=== PATIENT | male | born 1960 | race American Indian/Alaskan Native ===

== ENCOUNTER 2018-10-12 11:26 | Outpatient (CLI) | payer BC ==
--- NOTE | 2018-10-12 13:27 | Cat Scan Report ---
CT scan of the abdomen and pelvis without contrast INDICATION: HEMATURIA,GROSS (R31.0). TECHNIQUE: All CT scans at this location are performed using the following dose modulation technique: Automated exposure control. Helical slices were obtained through the abdomen and pelvis. COMPARISON: CT scan dated 08/18/2011 FINDINGS: Abdomen: The lung bases are clear. Liver, spleen, pancreas, adrenal glands, and small bowel are unrem arkable. The aorta is normal in diameter. The right kidney is severely atrophic and unchanged from the prior exam. There is compensatory hypert rophy of the left kidney. There are small low-density lesions in the left kidney which measure water density and likely represent cysts. No renal calculi are seen. There are no ureteral calculi. There i s no hydronephrosis. The appendix is unremarkable. Pelvis: There is no obstruction, inflammation, or free air. There are atherosclerotic calcifications in the iliac arteries. There is no adenopathy. On review of bone windows, no acute osseous abnormalities are seen. IMPRESSION: 1. There are no renal or ureteral calculi. There is no hydronephrosis. There are small low-density lesions in the left kidney which likely represent cysts. Ultrasound of th e left kidney can be obtained to confirm that these are cysts. There is severe atrophy of the right kidney with compensatory hypertrophy of the left kidney. This is unchanged from the prior study. Signer Name: Prashant Kingsley MD Signed: 10/12/2018 1:22 PM Workstation Name: [id number]
== END 2018-10-12 11:27 | disposition home or self-care (01) ==
LOC: CT 11:26
PROVIDERS: ATTEND Urology
DX: N28.81 Hypertrophy of kidney (principal)
CPT/HCPCS: 74176

== ENCOUNTER 2019-07-27 20:22 | Emergency (ER) | payer BC ==
[2019-07-27] MEDS ORDERED: LIDOCAINE JELLY (2%) 5 ML TOPICAL ONE (20:40)
[2019-07-27] MEDS ORDERED: LIDOCAINE 2% UROJECT 10 ML JELLY UR ONE (20:41)
--- NOTE | 2019-07-27 20:53 | Emergency Department Report ---
ED Male HPI - General Chief complaint: Urogenital-Male Stated complaint: UNABLE TO URINATE Time Seen by Provider: 07/27/19 20:35 Source: patient Mode of arrival: Ambulatory Limitations: No Limitations - History of Present Illness Initial comments: Patient is a 59-year-old male that presents emergency room with difficulty urinating. Patient states he is only urinating a very small amount. Patient is having lower abdominal discomfort. Patient states he has not voided except for small amounts for the past 24 hours. Patient states he is going approximately every 30 minutes a very small amount. Patient states he has an enlarged prostate. Patient states he Xavier has a urologist. Patient states he does not have a history of prostate cancer. Patient states the pain is a 3 out of 10. Pain states is better with urinating and worse with palpation. Patient denies fever and chills. Patient denies recent travel. Patient denies recent international travel. Patient denies exposure to the novel coronavirus. Patient denies sick contacts. Patient denies fever and chills. Patient denies cough. Patient denies diarrhea. Patient denies coming in contact with anybody with symptoms of the novel coronavirus. Complaint: other -: Sudden Radiation: none Severity: moderate Severity scale (0 -10): 3 Consistency: constant Improves with: urination Worsens with: movement - Related Data Sexually active: No Previous Rx's Medication Instructions Recorded Last Taken Type Ciprofloxacin HCl [Ciprofloxacin 500 mg PO Q12HR 10 Days #20 tab 07/27/19 Unknown Rx TAB] Allergies Allergy/AdvReac Type Severity Reaction Status Date / Time No Known Allergies Allergy Unverified 10/12/18 11:27 ED Review of Systems ROS: Stated complaint: UNABLE TO URINATE Other details as noted in HPI Constitutional: denies: chills, fever Eyes: denies: eye pain, eye discharge, vision change ENT: denies: ear pain, throat pain Respiratory: denies: cough, shortness of breath, wheezing Cardiovascular: denies: chest pain, palpitations Endocrine: no symptoms reported Gastrointestinal: denies: abdominal pain, nausea, diarrhea Genitourinary: as per HPI, other. denies: urgency, dysuria Musculoskeletal: denies: back pain, joint swelling, arthralgia Skin: denies: rash, lesions Neurological: denies: headache, weakness, paresthesias Psychiatric: denies: anxiety, depression Hematological/Lymphatic: denies: easy bleeding, easy bruising ED Past Medical Hx - Past Medical History Previous Medical History?: Yes Hx Hypertension: Yes Hx Diabetes: Yes Additional medical history: high cholesterol, BPH - Surgical History Past Surgical History?: No - Family History Family history: no significant - Social History Smoking Status: Current Every Day Smoker Substance Use Type: Alcohol - Medications Home Medications: Home Medications Medication Instructions Recorded Confirmed Last Taken Type Ciprofloxacin HCl [Ciprofloxacin 500 mg PO Q12HR 10 Days #20 tab 07/27/19 Unknown Rx TAB] ED Physical Exam - General Limitations: No Limitations General appearance: alert, in no apparent distress - Head Head exam: Present: atraumatic, normocephalic - Eye Eye exam: Present: normal appearance - ENT ENT exam: Present: mucous membranes moist - Neck Neck exam: Present: normal inspection - Respiratory Respiratory exam: Present: normal lung sounds bilaterally. Absent: respiratory distress - Cardiovascular Cardiovascular Exam: Present: regular rate, normal rhythm. Absent: systolic murmur, diastolic murmur, rubs, gallop - GI/Abdominal GI/Abdominal exam: Present: soft, normal bowel sounds - Rectal Rectal exam: Present: deferred - Extremities Exam Extremities exam: Present: normal inspection - Back Exam Back exam: Present: normal inspection - Neurological Exam Neurological exam: Present: alert, oriented X3 - Psychiatric Psychiatric exam: Present: normal affect, normal mood - Skin Skin exam: Present: warm, dry, intact, normal color. Absent: rash ED Course Vital Signs 07/27/19 20:54 Respiratory 18 Rate - Reevaluation(s) Reevaluation #1: Vigil placed by nurse. And large clot removed. Patient states his symptoms are better. 07/27/19 21:00 Reevaluation #2: Leg bag placed. Patient states he is ready to go home. I discussed Vigil care with patient. Patient will need to see urologist in the morning. Patient instructed to leave the catheter in until the urologist removes it. I discussed all results and clinical findings with patient. I discussed plan of care with patient. Patient agrees with plan of care. Patient is stable for discharge. Patient will be discharged home. Patient given discharge instructions. Patient voiced understanding of discharge instructions. 07/27/19 22:01 ED Medical Decision Making - Medical Decision Making Patient is a 59-year-old male that presents emergency room with complaints of urinary retention and difficulty urinating. Patient had a Vigil catheter placed and his symptoms were relieved. Patient discharged with Vigil catheter and an will need to follow-up with urologist for further management of his urinary retention. Patient's urine done and found to have WBCs on the urine. Patient treated for a UTI. Patient discharged with Vigil. Patient is stable for discharge - Differential Diagnosis Urinary retention, UTI, prostatitis, BPH Critical care attestation.: If time is entered above; I have spent that time in minutes in the direct care of this critically ill patient, excluding procedure time. ED Disposition Clinical Impression: Gross hematuria, Urinary retention UTI (urinary tract infection) Qualifiers: Urinary tract infection type: acute cystitis Hematuria presence: with hematuria Qualified Code(s): N30.01 - Acute cystitis with hematuria Disposition: TO HOME OR SELFCARE Is pt being admited?: No Does the pt Need Aspirin: No Condition: Stable Instructions: Urinary Retention in Men (ED), Urinary Leg Bag (GEN), Vigil Catheter Placement and Care (ED) Additional Instructions: Patient to follow-up with primary care in 2 to 3 days. Patient to follow-up with urologist in 2 to 3 days. Patient to rest. Patient to increase water. Patient to leave catheter in until removed by urologist. Patient to take Tylenol or ibuprofen as needed for pain. Patient to take meds as directed. Patient to return to the ER if condition worsens, changes or new symptoms arise. Prescriptions: Ciprofloxacin HCl [Ciprofloxacin TAB] 500 mg PO Q12HR 10 Days #20 tab Referrals: RICK MAHARAJ JR, MD [Primary Care Provider] - 2-3 Days ARGENTINA DOE MD [Staff Physician] - 24 Hours Time of Disposition: 22:01
[2019-07-27 21:15] LABS: Bacteria,Urine 4+ /HPF (Negative)
[2019-07-27 21:35] LABS: RBC,Urine > 182.0 /HPF (0.0-6.0); WBC,Urine > 182.0 /HPF (0.0-6.0)
[2019-07-27 23:41] LABS: Bacteria,Urine 1+ /HPF (Negative); Bilirubin,Urine NEG (Negative); Blood,Urine LG (Negative); Color,Urine Red (Yellow); Urobilinogen,Urine < 2.0 mg/dL (<2.0)
[2019-07-27 23:45] LABS: RBC,Urine > 182.0 /HPF (0.0-6.0)
== END 2019-07-27 22:58 | disposition home or self-care (01) ==
LOC: ED 20:22
DX: R33.8 Other retention of urine (principal); N39.0 Urinary tract infection, site not specified; I10 Essential (primary) hypertension; E11.9 Type 2 diabetes mellitus without complications; E78.00 Pure hypercholesterolemia, unspecified; F17.200 Nicotine dependence, unspecified, uncomplicated
CPT/HCPCS: 51702; 81001; 87086

== ENCOUNTER 2019-11-30 04:12 | Emergency (ER) | payer BC ==
[2019-11-30 04:26] VITALS: BP 161/90
[2019-11-30 08:42] LABS: Bilirubin,Urine NEG (Negative); Blood,Urine LG (Negative); Color,Urine Red (Yellow); Mucus,Urine FEW /HPF; Urobilinogen,Urine < 2.0 mg/dL (<2.0)
[2019-11-30 08:48] LABS: RBC,Urine > 182.0 /HPF (0.0-6.0); WBC,Urine > 182.0 /HPF (0.0-6.0)
--- NOTE | 2019-11-30 09:07 | Emergency Department Report ---
ED Male HPI - General Chief complaint: Urogenital-Male Stated complaint: UNABLE TO URINATE Time Seen by Provider: 11/30/19 08:24 Source: patient Mode of arrival: Ambulatory Limitations: No Limitations - History of Present Illness Initial comments: 59-year-old -[place] male presents to the emergency room stating he is having trouble urinating. Patient states that he had been peeing clots. Patient reported he is scheduled to have kidney biopsy on [address] Stevens. Patient states that when he went to the back from here emergency room it kind of exploded and he ended up pain all over himself in the bathroom with blood-tinged urine. Patient denies any fever no pain no chills. It was noted that patient has a low-grade fever of 99.1 in triage and mildly tachycardic at 103. Patient has a past medical history of diabetes hypertension high cholesterol BPH. Onset/Timin -: hour(s) Severity: severe blood in urine - Related Data Previous Rx's Medication Instructions Recorded Last Taken Type Ciprofloxacin HCl [Ciprofloxacin 500 mg PO Q12HR 10 Days #20 tab 07/27/19 Unknown Rx TAB] Ciprofloxacin HCl [Ciprofloxacin 500 mg PO Q12HR 10 Days #20 tab 11/30/19 Unknown Rx TAB] Allergies Allergy/AdvReac Type Severity Reaction Status Date / Time No Known Allergies Allergy Verified 11/25/19 11:22 ED Review of Systems ROS: Stated complaint: UNABLE TO URINATE Other details as noted in HPI Comment: All other systems reviewed and negative ED Past Medical Hx - Past Medical History Hx Hypertension: Yes (X 20 YRS) Hx Diabetes: Yes Hx HIV: No Additional medical history: high cholesterol, BPH - Social History Smoking Status: Current Every Day Smoker Substance Use Type: Alcohol - Medications Home Medications: Home Medications Medication Instructions Recorded Confirmed Last Taken Type Ciprofloxacin HCl [Ciprofloxacin 500 mg PO Q12HR 10 Days #20 tab 07/27/19 Unknown Rx TAB] Ciprofloxacin HCl [Ciprofloxacin 500 mg PO Q12HR 10 Days #20 tab 11/30/19 Unknown Rx TAB] ED Physical Exam - General Limitations: No Limitations General appearance: alert, in no apparent distress - Head Head exam: Present: atraumatic, normocephalic - Eye Eye exam: Present: normal appearance - ENT ENT exam: Present: mucous membranes moist - Respiratory Respiratory exam: Present: normal lung sounds bilaterally. Absent: respiratory distress - Cardiovascular Cardiovascular Exam: Present: regular rate, normal rhythm. Absent: systolic murmur, diastolic murmur, rubs, gallop - GI/Abdominal GI/Abdominal exam: Present: soft, normal bowel sounds - Extremities Exam Extremities exam: Present: full ROM - Back Exam Back exam: Present: normal inspection - Neurological Exam Neurological exam: Present: alert, oriented X3, normal gait - Psychiatric Psychiatric exam: Present: normal affect, normal mood - Skin Skin exam: Present: warm, dry, intact, normal color. Absent: rash ED Course Vital Signs 11/30/19 04:23 Temperature 99.1 F Pulse Rate 103 H Respiratory 18 Rate Blood Pressure 161/90 O2 Sat by Pulse 99 Oximetry ED Medical Decision Making - Medical Decision Making 59-year-old -[place] male presents to the emergency room stating he is having trouble urinating. Patient states that he had been peeing clots. Patient reported he is scheduled to have kidney biopsy on [address] Stevens. Patient states that when he went to the back from here emergency room it kind of exploded and he ended up pain all over himself in the bathroom with blood-tinged urine. Patient denies any fever no pain no chills. It was noted that patient has a low-grade fever of 99.1 in triage and mildly tachycardic at 103. Patient has a past medical history of diabetes hypertension high cholesterol BPH. Patient's urine is come back greater than 182 WBCs as well as greater than 182 RBCs and large amounts of leukoesterase. Call has been placed to Dr. Stevens to consult if you would like for me to place a Vigil catheter. Patient will be treated with antibiotics for his urinary tract infection. Spoke to Dr. Stevens he advised to not place a Vigil he states check his blood sugar educate patient on keeping his blood sugars and control as this increases his chances of coming out of urinary tract infections. Patient be discharged home on Cipro 500 mg twice a day for 10 days. Instructions to increase his water intake and keep his appointment with Dr. Stevens. Critical care attestation.: If time is entered above; I have spent that time in minutes in the direct care of this critically ill patient, excluding procedure time. ED Disposition Clinical Impression: Urinary retention, Urinary tract infection, Glucosuria, Diabetes 1.5, managed as type 2 Disposition: DC-01 TO HOME OR SELFCARE Is pt being admited?: No Does the pt Need Aspirin: No Condition: Stable Instructions: Urinary Tract Infection in Men (ED), Urinary Retention in Men (ED), Diabetes Mellitus Type 2 in Adults (ED) Additional Instructions: Complete antibiotics as prescribed. Is important to keep your blood sugars less than 130. Increase your water intake avoid sugary drinks. Keep your appointment with Dr. Stevens. Prescriptions: Ciprofloxacin HCl [Ciprofloxacin TAB] 500 mg PO Q12HR 10 Days #20 tab Referrals: PRIMARY CAREMD [Primary Care Provider] - 3-5 Days ARGENTIAN STEVENS MD [Staff Physician] - 3-5 Days Forms: Work/School Release Form(ED)
== END 2019-11-30 10:06 | disposition home or self-care (01) ==
LOC: ED 04:12
DX: R33.9 Retention of urine, unspecified (principal); N39.0 Urinary tract infection, site not specified; R81 Glycosuria; E11.9 Type 2 diabetes mellitus without complications; I10 Essential (primary) hypertension; F17.200 Nicotine dependence, unspecified, uncomplicated; Z79.2 Long term (current) use of antibiotics
CPT/HCPCS: 81001; 82962

== ENCOUNTER 2019-12-01 02:05 | Emergency (ER) | payer BC ==
[2019-12-01] MEDS ORDERED: SODIUM CHLORIDE 0.9% 1000 ML 1,000 ML IV ONE (02:58)
[2019-12-01 03:42] LABS: Basophils % (Auto) 0.5 % (0.0-1.8); Eosinophils % (Auto) 0.4 % (0.0-4.3); Hematocrit 32.6 % (35.5-45.6); Hemoglobin 11.2 gm/dl (11.8-15.2); Lymphocytes # (Auto) 1.5 K/mm3 (1.2-5.4); Lymphocytes % (Auto) 18.3 % (13.4-35.0); Mean Corpuscular HGB Conc 34 % (32-34); Mean Corpuscular Volume 83 fl (84-94); Monocytes # (Auto) 0.5 K/mm3 (0.0-0.8); Monocytes % (Auto) 5.5 % (0.0-7.3); Platelet Count 263 K/mm3 (140-440); Red Blood Count 3.93 M/mm3 (3.65-5.03); Red Cell Distribution Width 14.1 % (13.2-15.2)
[2019-12-01 04:00] LABS: Calcium 9.3 mg/dL (8.4-10.2)
--- NOTE | 2019-12-01 06:23 | Emergency Department Report ---
ED Male HPI - General Chief complaint: Urogenital-Male Stated complaint: BLOOD IN URINE Time Seen by Provider: 12/01/19 03:00 Source: patient Mode of arrival: Ambulatory Limitations: No Limitations - History of Present Illness Initial comments: 59-year-old male presents to ED with complaint of hematuria. Patient was seen on yesterday for same, discharged with prescription for Cipro. Tonight, patient states he is having gross blood when he tries to urinate, and also reports difficulty urinating. Blood pressure slightly low at triage. Urologist: Dr Hilda FERNÁNDEZ Complaint: other -: days(s) (2) Severity: moderate Consistency: constant Improves with: none Worsens with: none urinary retention, blood in urine. denies: fever - Related Data Previous Rx's Medication Instructions Recorded Last Taken Type Ciprofloxacin HCl [Ciprofloxacin 500 mg PO Q12HR 10 Days #20 tab 07/27/19 Unknown Rx TAB] Ciprofloxacin HCl [Ciprofloxacin 500 mg PO Q12HR 10 Days #20 tab 11/30/19 Unknown Rx TAB] Allergies Allergy/AdvReac Type Severity Reaction Status Date / Time No Known Allergies Allergy Verified 11/25/19 11:22 ED Review of Systems ROS: Stated complaint: BLOOD IN URINE Other details as noted in HPI Comment: All other systems reviewed and negative Constitutional: denies: fever Gastrointestinal: denies: abdominal pain Genitourinary: as per HPI ED Past Medical Hx - Past Medical History Hx Hypertension: Yes (X 20 YRS) Hx Diabetes: Yes Hx HIV: No Additional medical history: high cholesterol, BPH - Social History Smoking Status: Current Every Day Smoker Substance Use Type: Alcohol - Medications Home Medications: Home Medications Medication Instructions Recorded Confirmed Last Taken Type Ciprofloxacin HCl [Ciprofloxacin 500 mg PO Q12HR 10 Days #20 tab 07/27/19 Unknown Rx TAB] Ciprofloxacin HCl [Ciprofloxacin 500 mg PO Q12HR 10 Days #20 tab 11/30/19 Unknown Rx TAB] ED Physical Exam - General Limitations: No Limitations General appearance: alert, in no apparent distress - Head Head exam: Present: atraumatic, normocephalic - Eye Eye exam: Present: normal appearance, EOMI - ENT ENT exam: Present: mucous membranes moist - Neck Neck exam: Present: normal inspection - Respiratory Respiratory exam: Present: normal lung sounds bilaterally. Absent: respiratory distress - Cardiovascular Cardiovascular Exam: Present: regular rate, normal rhythm - GI/Abdominal GI/Abdominal exam: Present: soft. Absent: distended, tenderness - Extremities Exam Extremities exam: Present: normal inspection - Neurological Exam Neurological exam: Present: alert, oriented X3 - Psychiatric Psychiatric exam: Present: normal affect, normal mood - Skin Skin exam: Present: warm, dry, intact, normal color ED Course Vital Signs 12/01/19 12/01/19 12/01/19 02:09 02:45 02:58 Temperature 98.5 F Pulse Rate 95 H 89 Respiratory 18 19 Rate Blood Pressure 98/49 Blood Pressure 106/65 128/62 [Left] Blood Pressure 91/49 [Right] O2 Sat by Pulse 98 98 Oximetry 12/01/19 12/01/19 12/01/19 03:31 03:45 04:00 Temperature Pulse Rate 77 87 85 Respiratory 16 14 22 Rate Blood Pressure 116/64 116/64 135/71 Blood Pressure [Left] Blood Pressure [Right] O2 Sat by Pulse 96 98 99 Oximetry 12/01/19 12/01/19 12/01/19 04:15 04:31 04:45 Temperature Pulse Rate 84 83 82 Respiratory 14 13 19 Rate Blood Pressure 135/71 135/71 135/71 Blood Pressure [Left] Blood Pressure [Right] O2 Sat by Pulse 98 100 99 Oximetry 12/01/19 12/01/19 12/01/19 05:00 05:15 05:45 Temperature Pulse Rate 82 90 79 Respiratory 18 22 19 Rate Blood Pressure 138/69 138/69 132/64 Blood Pressure [Left] Blood Pressure [Right] O2 Sat by Pulse 99 100 98 Oximetry - Consultations Consultation #1: 12/01/19 06:[address] Stevens. States okay to place Vigil catheter if patient having difficulty urinating. ED Medical Decision Making - Lab Data Result diagrams: 12/01/19 03:08 12/01/19 03:08 - Medical Decision Making 59-year-old male with gross hematuria on exam. Seen yesterday for same. Patient reports difficulty urinating today. He was initially somewhat hypotensive upon presentation. Patient has been given 1 L IV fluids with improvement in blood pressure. Hemoglobin is acceptable at 11.2. I spoke with Dr. Stevesn, who agrees okay to place Vigil catheter. Patient to follow-up in office. Patient was given prescription for Cipro on yesterday. He has been encouraged to continue this course of antibiotics. He will be discharged at this time. - Differential Diagnosis Malignancy, infection, anemia Critical care attestation.: If time is entered above; I have spent that time in minutes in the direct care of this critically ill patient, excluding procedure time. ED Disposition Clinical Impression: Hematuria Disposition: DC-01 TO HOME OR SELFCARE Is pt being admited?: No Condition: Stable Instructions: Vigil Catheter Placement and Care (ED), Acute Hematuria (ED), Urinary Leg Bag (GEN) Additional Instructions: Continue taking your antibiotics as instructed. Referrals: ARGENTINA STEVENS MD [Staff Physician] - 3-5 Days Time of Disposition: 06:24
[2019-12-01] MEDS ORDERED: SODIUM CHLORIDE 0.9% IRR 500 ML BOTTLE IR ONE (06:25)
[2019-12-01] MEDS ORDERED: SODIUM CHLORIDE IRRI 500 ML 500 ML IR ONE (06:27)
[2019-12-01 06:55] VITALS: BP 151/79
== END 2019-12-01 07:19 | disposition home or self-care (01) ==
LOC: ED 02:05
DX: R31.9 Hematuria, unspecified (principal); R33.9 Retention of urine, unspecified; I10 Essential (primary) hypertension; E11.9 Type 2 diabetes mellitus without complications; F17.200 Nicotine dependence, unspecified, uncomplicated; Z79.2 Long term (current) use of antibiotics
CPT/HCPCS: 36415; 51702; 80048; 85025; 86850; 86900; 86901; 96360; 99284; J7030

== ENCOUNTER 2019-12-02 05:22 | Emergency (ER) | payer BC ==
--- NOTE | 2019-12-02 09:32 | Emergency Department Report ---
Chief Complaint: Urogenital-Male Stated Complaint: CATHETER CHANGE Time Seen by Provider: 12/02/19 09:25 - HPI History of Present Illness: Mr. Rodriguez presents with irritation of Vigil catheter. He also has hematuria. This gentleman has been seen by my colleagues on 2 previous occasion. He had a recent catheter change on yesterday. I have encouraged him to leave the catheter in place. He will see his urologist tomorrow for preop appointment. Kidney biopsy is scheduled for possible neoplasm/malignancy. Medical screening exam performed and completed. He is currently taking antibiotics. He does not have an acute emergent condition which needs further stabilization. - Exam Vital Signs: Vital Signs 12/02/19 12/02/19 05:51 05:54 Temperature 98.4 F 98.4 F Pulse Rate 87 87 Respiratory 18 18 Rate Blood Pressure 153/77 153/77 Blood Pressure 153/77 [Right] O2 Sat by Pulse 100 100 Oximetry MSE screening note: Focused history and physical exam performed. Due to findings the following was ordered: ED Disposition for MSE Clinical Impression: Vigil catheter in place Disposition: MED SCREENING EXAM-LEFT Condition: Stable Instructions: Vigil Catheter Placement and Care (ED) Referrals: DAWSON ELDER MD [Staff Physician] - 3-5 Days ARGENTINA DOE MD [Primary Care Provider] - [facility]
[2019-12-02 09:42] VITALS: BP 147/80
== END 2019-12-02 09:43 | disposition left against medical advice (07) ==
LOC: ED 05:22
DX: R31.9 Hematuria, unspecified (principal); Z53.21 Procedure and treatment not carried out due to patient leaving prior to being seen by health care provider